=== PATIENT | female | born 2000 | race African-American/Black ===

== ENCOUNTER 2024-05-03 12:40 | Emergency (ER) | payer MEDICAID ==
[~2024-05-03] VITALS: Ht 170.2 cm; Wt 81.6 kg
[2024-05-03 12:43] VITALS: O2SAT 100
[2024-05-03 14:41] VITALS: BP 114/74; PULSE 68; RESP 18; TEMP 98.5
== END 2024-05-03 14:58 | disposition home or self-care (01) ==
LOC: ER 12:40
DX: S90.31XA Contusion of right foot, initial encounter (principal); Z98.890 Other specified postprocedural states; W52.XXXA Crushed, pushed or stepped on by crowd or human stampede, initial encounter; Y93.89 Activity, other specified; Y92.89 Other specified places as the place of occurrence of the external cause; Y99.8 Other external cause status
CPT/HCPCS: 73630; 99283

== ENCOUNTER 2024-05-19 13:44 | Emergency (ER) | payer BC, MEDICAID ==
[~2024-05-19] VITALS: Ht 170.2 cm; Wt 73.0 kg
[2024-05-19 13:55] VITALS: O2SAT 100
[2024-05-19 14:29] LABS: CLARITY URINE CLOUDY (CLEAR); COLOR URINE YELLOW (YELLOW); GLUCOSE URINE NEGATIVE (NEGATIVE); KETONES URINE NEGATIVE (NEGATIVE); LEUKOCYTE ESTERASE URINE 2+ (NEGATIVE); NITRITE URINE NEGATIVE (NEGATIVE); OCCULT BLOOD URINE TRACE (NEGATIVE); PROTEIN URINE NEGATIVE (NEGATIVE); SPECIFIC GRAVITY URINE 1.013 (1.005-1.030); UROBILINOGEN URINE 0.2 E.U./dL (0.2-1.0)
[2024-05-19 14:50] LABS: BASOPHILS % 0.4 % (0.0-2.0); EOSINOPHILS % 0.7 % (0.0-5.0); HEMATOCRIT. 40.7 % (36.0-48.0); HEMOGLOBIN. 13.5 g/dL (12.0-16.0); LYMPHOCYTES % 27.5 % (20.0-50.0); MEAN CORPUSCULAR HEMOGLOBIN 29.6 pg (28.0-32.0); MEAN CORPUSCULAR HGB CONC 33.1 g/dL (31.0-37.0); MEAN CORPUSCULAR VOLUME 89.3 fL (81.0-99.0); MEAN PLATELET VOLUME 9.1 fl (7.4-10.4); MONOCYTES % 8.3 % (2.0-8.0); NEUTROPHILS % 63.1 % (40.0-76.0); PLATELET 249 x1000/uL (130-400); RED BLOOD CELL COUNT 4.56 mill/uL (4.2-5.4); RED CELL DISTRIBUTION WIDTH 16.1 % (11.6-14.6); WHITE BLOOD COUNT 7.9 x1000/uL (4.5-11.0)
[2024-05-19 14:55] LABS: BACTERIA URINE 2+; SQUAMOUS EPITHELIAL CELL URINE 2+ /lpf (RARE/1+); TRICHOMONAS URINE 1+; YEAST URINE NONE SEEN
[2024-05-19 14:57] LABS: CHLORIDE 105 mEq/L (98-107); POTASSIUM 4.2 mEq/L (3.5-5.1); SODIUM 137 mEq/L (136-145)
[2024-05-19 14:58] LABS: CALCIUM 10.3 mg/dL (8.7-10.4); CARBON DIOXIDE 26 mEq/L (21-32)
[2024-05-19 15:02] LABS: HCG SCREEN NEGATIVE
[2024-05-19 15:03] LABS: CREATININE 0.8 mg/dL (0.6-1.0); GLUCOSE 98 mg/dL (70-105); UREA NITROGEN BLOOD 10 mg/dL (9-23)
[2024-05-19 15:05] LABS: ALANINE AMINOTRANSFERASE 9 IU/L (10-49); ALBUMIN 4.8 g/dL (3.2-4.8); ASPARTATE AMINOTRANSFERASE 18 IU/L (<34); BILIRUBIN DIRECT 0.2 mg/dL (<=3.0); BILIRUBIN TOTAL 0.7 mg/dL (0.1-1.0); PROTEIN TOTAL 7.9 g/dL (6.0-8.3)
[2024-05-19] MEDS: METOCLOPRAMIDE HCL 10MG TABLET PO ONE (15:41)
[2024-05-19] MEDS ORDERED: IBUP-2028 MT (15:43)
[2024-05-19] MEDS: IBUPROFEN 400MG TABLET PO ONE (15:43)
[2024-05-19] MEDS ORDERED: CEPH500C2 MT (15:44)
[2024-05-19 16:09] VITALS: BP 135/82; PULSE 81; RESP 17; TEMP 98.3; O2SAT 100
== END 2024-05-19 17:23 | disposition home or self-care (01) ==
LOC: ER 14:44
DX: N39.0 Urinary tract infection, site not specified (principal); N64.4 Mastodynia
CPT/HCPCS: 99283; 80076; 80048; 81003; 84703; 83690; 85025; 36415; J8597

== ENCOUNTER 2024-09-09 17:46 | Emergency (ER) | payer BC, MEDICAID ==
[~2024-09-09] VITALS: Ht 170.2 cm; Wt 86.0 kg
[~2024-09-09 17:46] MED LIST: CEPH500C2 MT; IBUP-2028 MT
[2024-09-09 17:52] VITALS: O2SAT 99
[2024-09-09] MEDS: ONDANSETRON HCL 4MG TABLET PO ONE (19:14)
[2024-09-09 19:59] LABS: BASOPHILS % 0.4 % (0.0-2.0); EOSINOPHILS % 0.7 % (0.0-5.0); HEMATOCRIT. 38.8 % (36.0-48.0); HEMOGLOBIN. 12.6 g/dL (12.0-16.0); MEAN CORPUSCULAR HEMOGLOBIN 28.7 pg (28.0-32.0); MEAN CORPUSCULAR HGB CONC 32.5 g/dL (31.0-37.0); MEAN CORPUSCULAR VOLUME 88.4 fL (81.0-99.0); MONOCYTES % 8.3 % (2.0-8.0); NEUTROPHILS % 63.6 % (40.0-76.0); PLATELET 248 x1000/uL (130-400); RED BLOOD CELL COUNT 4.39 mill/uL (4.2-5.4); RED CELL DISTRIBUTION WIDTH 15.8 % (11.6-14.6); WHITE BLOOD COUNT 7.5 x1000/uL (4.5-11.0)
[2024-09-09 20:02] LABS: CLARITY URINE CLOUDY (CLEAR); COLOR URINE YELLOW (YELLOW); GLUCOSE URINE NEGATIVE (NEGATIVE); KETONES URINE NEGATIVE (NEGATIVE); LEUKOCYTE ESTERASE URINE 1+ (NEGATIVE); NITRITE URINE POSITIVE (NEGATIVE); OCCULT BLOOD URINE NEGATIVE (NEGATIVE); PROTEIN URINE NEGATIVE (NEGATIVE); SPECIFIC GRAVITY URINE 1.027 (1.005-1.030)
[2024-09-09 20:06] LABS: CHLORIDE 103 mEq/L (98-107); POTASSIUM 3.8 mEq/L (3.5-5.1); SODIUM 138 mEq/L (136-145)
[2024-09-09 20:07] LABS: CALCIUM 9.9 mg/dL (8.7-10.4); CARBON DIOXIDE 28 mEq/L (21-32)
[2024-09-09 20:09] LABS: *AMPHETAMINES SCREEN URINE NEGATIVE (NEGATIVE); *BARBITURATES SCREEN URINE NEGATIVE (NEGATIVE); *BENZODIAZEPINES SCREEN URINE NEGATIVE (NEGATIVE); *COCAINE SCREEN URINE NEGATIVE (NEGATIVE); CANNABINOID URINE SCREEN PRESUMPTIVE POSITIVE (NEGATIVE); ECSTASY MDMA SCREEN URINE NEGATIVE (NEGATIVE); METHADONE URINE SCREEN NEGATIVE (NEGATIVE); OPIATES URINE SCREEN NEGATIVE (NEGATIVE); PHENCYCLIDINE URINE SCREEN NEGATIVE (NEGATIVE)
[2024-09-09 20:12] LABS: CREATININE 0.6 mg/dL (0.6-1.0); GLUCOSE 98 mg/dL (70-105); UREA NITROGEN BLOOD 12 mg/dL (9-23)
[2024-09-09 20:14] LABS: ALANINE AMINOTRANSFERASE 21 IU/L (10-49); ALBUMIN 4.3 g/dL (3.2-4.8); ASPARTATE AMINOTRANSFERASE 22 IU/L (<34); BILIRUBIN DIRECT 0.1 mg/dL (<=3.0); BILIRUBIN TOTAL 0.5 mg/dL (0.1-1.0); PROTEIN TOTAL 7.3 g/dL (6.0-8.3)
[2024-09-09 20:15] LABS: HCG SCREEN NEGATIVE
[2024-09-09 20:18] LABS: BACTERIA URINE 4+; RBC URINE 0-2 /hpf (0-2); SQUAMOUS EPITHELIAL CELL URINE 1+ /lpf (RARE/1+)
[2024-09-09 20:29] LABS: ETHANOL BLOOD < 10 mg/dL (<10)
[2024-09-09] MEDS: CEPHALEXIN 250MG CAPSULE PO NR (20:51)
[2024-09-09] MEDS ORDERED: CEPH500T MT (21:02)
[2024-09-09] MEDS ORDERED: ONDA-239 PO (21:02)
[2024-09-09 21:14] VITALS: BP 114/73; PULSE 79; RESP 16; TEMP 36.94740; O2SAT 99
== END 2024-09-09 21:16 | disposition home or self-care (01) ==
LOC: ER 17:46
DX: N39.0 Urinary tract infection, site not specified (principal); G89.29 Other chronic pain; M25.562 Pain in left knee
CPT/HCPCS: 80076; 80305; 80048; 81003; 80320; 84703; 83690; 85025; 85610; 36415; 73562; 74176; 99284; Q0162; G0480

== ENCOUNTER 2024-10-28 22:07 | Emergency (ER) | payer BC, MEDICAID ==
[~2024-10-28] VITALS: Ht 172.7 cm; Wt 100.4 kg
[~2024-10-28 22:07] MED LIST changes: +CEPH500T MT; +ONDA-239 PO
[2024-10-28 22:29] VITALS: O2SAT 98
[2024-10-28] MEDS ORDERED: IBUP-2029 MT (23:02)
[2024-10-28] MEDS ORDERED: METH-653 MT (23:02)
[2024-10-28 23:37] VITALS: BP 122/77; PULSE 89; RESP 16; TEMP 37.1; O2SAT 100
== END 2024-10-28 23:38 | disposition home or self-care (01) ==
LOC: ER 22:07
DX: S33.5XXA Sprain of ligaments of lumbar spine, initial encounter (principal); Z98.890 Other specified postprocedural states; Z79.899 Other long term (current) drug therapy; X58.XXXA Exposure to other specified factors, initial encounter; Y93.89 Activity, other specified; Y92.89 Other specified places as the place of occurrence of the external cause; Y99.8 Other external cause status
CPT/HCPCS: 99283

== ENCOUNTER 2024-12-25 09:34 | Emergency (ER) | payer MEDICAID ==
[~2024-12-25] VITALS: Ht 172.7 cm; Wt 100.0 kg
[~2024-12-25 09:34] MED LIST changes: +IBUP-2029 MT; +METH-653 MT
[2024-12-25 09:44] VITALS: O2SAT 95
[2024-12-25 09:47] VITALS: BP 109/74; PULSE 73; RESP 18; TEMP 36.6; O2SAT 98
[2024-12-25] MEDS: ACETAMINOPHEN 325MG TABLET PO ONE (10:30)
[2024-12-25 11:38] LABS: HCG SCREEN NEGATIVE
== END 2024-12-25 14:09 | disposition home or self-care (01) ==
LOC: ER 09:34
DX: M25.562 Pain in left knee (principal); Z79.899 Other long term (current) drug therapy; Z98.890 Other specified postprocedural states
CPT/HCPCS: 84703; 73562; 99284; Z7610; L1830

== ENCOUNTER 2025-08-09 11:38 | Emergency (ER) | payer SELFPAY ==
[~2025-08-09] VITALS: Ht 172.7 cm; Wt 84.0 kg
[~2025-08-09 11:38] MED LIST changes: +IBUP-1455 MT; -IBUP-2029 MT
[2025-08-09 11:40] VITALS: O2SAT 100
[2025-08-09 11:46] VITALS: BP 133/76; PULSE 83; RESP 16; TEMP 36.8; O2SAT 100
== END 2025-08-09 13:10 | disposition left against medical advice (07) ==
LOC: ER 11:38
DX: M79.672 Pain in left foot (principal)
CPT/HCPCS: 99281

== ENCOUNTER 2025-09-25 19:23 | Emergency (ER) | payer SELFPAY ==
[~2025-09-25] VITALS: Ht 172.7 cm; Wt 83.1 kg
[2025-09-25 19:24] VITALS: BP 113/73; TEMP 36.8
[2025-09-25 19:26] VITALS: O2SAT 98
[2025-09-25 20:12] LABS: BASOPHILS % 0.7 % (0.0-2.0); EOSINOPHILS % 2.7 % (0.0-5.0); HEMATOCRIT. 36.9 % (36.0-48.0); HEMOGLOBIN. 12.3 g/dL (12.0-16.0); LYMPHOCYTES % 24.0 % (20.0-50.0); MEAN PLATELET VOLUME 9.4 fl (7.4-10.4); MONOCYTES % 13.3 % (2.0-8.0); NEUTROPHILS % 59.3 % (40.0-76.0); PLATELET 241 x1000/uL (130-400); RED BLOOD CELL COUNT 3.96 mill/uL (4.2-5.4); RED CELL DISTRIBUTION WIDTH 14.8 % (11.6-14.6)
[2025-09-25 20:26] LABS: CREATININE 0.7 mg/dL (0.6-1.0); UREA NITROGEN BLOOD 9 mg/dL (9-23)
[2025-09-25] MEDS ORDERED: ALBU18HF2 IH (21:04)
[2025-09-25] MEDS ORDERED: BENZONATATE 200MG CAPSULE PO ONE (21:15)
[2025-09-25] MEDS ORDERED: ACETAMINOPHEN 325MG TABLET PO ONE (21:15)
[2025-09-25 21:56] VITALS: PULSE 80; RESP 20; O2SAT 98
[2025-09-25] MEDS: IPRATROPIUM/ALBUTEROL 0.5-3(2.5)MG/3ML NEB HHN ONE (21:56)
== END 2025-09-25 23:33 | disposition home or self-care (01) ==
LOC: ER 19:23
DX: R05.9 Cough, unspecified (principal); D57.1 Sickle-cell disease without crisis; Z91.013 Allergy to seafood; Z79.899 Other long term (current) drug therapy
CPT/HCPCS: 80048; 81025; 85025; 36415; 71045; 94640; 93005; 99285; Z7610 ×2; 94070; 98960